=== PATIENT | male | born 1945 | race Caucasian/White ===

== ENCOUNTER → 2018-02-07 | Outpatient (CLI) | payer OTHER ==
[~2018-02-07] MED LIST: IOHEXOL 300 MG/ML 75 ML VIAL. IV ONE
[2018-02-07 10:50] LABS: CREATININE 0.8 mg/dL (0.7-1.3); GFR 95.3
--- NOTE | 2018-02-07 13:24 | RAD ---
CT study chest with contrast Clinical indications: Abnormal chest x-ray TECHNIQUE: After IV infusion of 75 cc of Omnipaque 300, helical CT scanning of the chest was performed. COMPARISON: December 14, 2016. FINDINGS: No enlarged thoracic lymphadenopathy is evident. No focal aneurysmal dilatation or dissection of the thoracic aorta is seen. The heart size is normal and no pericardial effusion is seen. Calcified atheromatous disease of the coronary arteries is seen. No pleural effusion or pneumothorax is seen. There is chronic elevation of the left hemidiaphragm. There is associated chronic atelectasis or scarring of the left lung base. There is a small granuloma within the anterior aspect of the lingula which is stable. There is some mild chronic scarring within the right lung base which is stable. No new lung infiltrate or lung mass is evident. The proximal bronchial tree is patent. No osteolytic process is seen. Right adrenal adenoma is seen and is unchanged from a CT study of the abdomen dated December 14, 2016. IMPRESSION: Chronic elevation of the left hemidiaphragm and associated chronic left lung base atelectasis or scarring. No new lung infiltrate or lung mass is evident. Calcified atheromatous disease of the coronary arteries. Normal heart size. There is increased radiodensity and haziness involving the mesentery and the retroperitoneal soft tissues around the pancreas. This may be related to patient's large body habitus and associated CT technique but pancreatitis is certainly a possibility if there is abdominal pain and in this setting, correlation with pancreatic enzymes is recommended. Electronically signed by: South Bell MD (02/07/2018 1:21 PM) [facility]
== END | disposition home or self-care (01) ==
LOC: CT 09:31
PROVIDERS: ATTEND Nurse Practitioner Family
DX: R93.8 Abnormal findings on diagnostic imaging of other specified body structures (principal); I25.10 Atherosclerotic heart disease of native coronary artery without angina pectoris
CPT/HCPCS: 36415; 71260; 82565; 84520; Q9967

== ENCOUNTER → 2018-07-28 | Outpatient (CLI) | payer OTHER ==
--- NOTE | 2018-07-28 14:19 | RAD ---
Fluoroscopy less than one hour/sniff test HISTORY: Elevated left hemidiaphragm FINDINGS: Fluoroscopy was performed while patient attempted a sniff maneuver. However patient had difficulty inhaling through his nose. There is decreased excursion of the left hemidiaphragm although also diminished on the right. Fluoroscopy time: 0.8 minutes, 13 images IMPRESSION: 1. Patient had difficulty performing sniff maneuver, decreased excursion of the left hemidiaphragm although fairly symmetric in appearance comparing with the right. There is mild elevation of the left hemidiaphragm similar to 2013 chest radiograph Electronically signed by: Alex Trinidad MD (07/28/2018 2:16 PM) [facility]
== END | disposition home or self-care (01) ==
LOC: RAD 12:41
PROVIDERS: ATTEND Internal Medicine
DX: J98.6 Disorders of diaphragm (principal); I25.10 Atherosclerotic heart disease of native coronary artery without angina pectoris
CPT/HCPCS: 76000

== ENCOUNTER 2019-09-02 12:16 | Emergency (ER) | payer MEDICARE, OTHER ==
[~2019-09-02] VITALS: Ht 184.2 cm; Wt 155.4 kg
[2019-09-02] MEDS ORDERED: IPRATRPIUM/ALBUTEROL 0.5/2.5MG 3 ML NEBU. NEB ONE (12:30)
[2019-09-02] MEDS ORDERED: ASPIRIN 81 MG TAB.CHEW PO ONE (12:30)
--- NOTE | 2019-09-02 12:32 | PHYS DOC ---
Past History Past Medical History: Diabetes, DVT (calf in 2010), Hypertension Past Surgical History: Tonsillectomy Smoking: Quit Greater Than 1 Year Alcohol Use: None Drug Use: None Adult General Chief Complaint Chief Complaint: CHEST PAIN HPI HPI Patient is a 73-year-old male presents with chest heaviness and difficulty breathing that started 15-20 minutes prior to arrival. Worse with exertion. No radiation. No nausea or vomiting. No diaphoresis. Patient has been getting evaluated by his primary care physician for possibility of asthma versus COPD. Patient is a former smoker having stopped in the 1970s.[] Review of Systems Review of Systems Constitutional: Denies fever or chills [] Eyes: Denies change in visual acuity, redness, or eye pain [] HENT: Denies nasal congestion or sore throat [] Respiratory: Denies cough or shortness of breath [] Cardiovascular: No additional information not addressed in HPI [] GI: Denies abdominal pain, nausea, vomiting, bloody stools or diarrhea [] : Denies dysuria or hematuria [] Musculoskeletal: Denies back pain or joint pain [] Integument: Denies rash or skin lesions [] Neurologic: Denies headache, focal weakness or sensory changes [] Endocrine: Denies polyuria or polydipsia [] All other systems were reviewed and found to be within normal limits, except as documented in this note. Allergies Allergies Allergies Coded Allergies Type Severity Reaction Last Updated Verified rosiglitazone Allergy Unknown 09/02/19 Yes Uncoded Allergies Type Severity Reaction Last Updated Verified STATIN Allergy Unknown 12/14/16 Physical Exam Physical Exam Constitutional: Well developed, well nourished, no acute distress, non-toxic appearance. [] HENT: Normocephalic, atraumatic, bilateral external ears normal, oropharynx moist, no oral exudates, nose normal. [] Eyes: PERRLA, EOMI, conjunctiva normal, no discharge. [] Neck: Normal range of motion, no tenderness, supple, no stridor. [] Cardiovascular:Heart rate regular rhythm, no murmur [] Lungs & Thorax: Bilateral breath sounds clear to auscultation [] Abdomen: Bowel sounds normal, soft, no tenderness, no masses, no pulsatile masses. [] Skin: Warm, dry, no erythema, no rash. [] Back: No tenderness, no CVA tenderness. [] Extremities: No tenderness, no cyanosis, no clubbing, ROM intact, no edema. [] Neurologic: Alert and oriented X 3, normal motor function, normal sensory function, no focal deficits noted. [] Psychologic: Affect normal, judgement normal, mood normal. [] EKG EKG EKG shows a sinus rhythm at 98 bpm, normal axis, QTC of 4 and 26 ms, no ST elevations. When compared with EKG of 12/25/2013, no acute changes are present. Interpreted by me at 1228[] Radiology/Procedures Radiology/Procedures PROCEDURE: CHEST PA & LATERAL PA and lateral chest radiographs 09/02/2019 CLINICAL HISTORY: Chest pain and shortness of breath. PA and lateral digital radiographs of the chest were obtained. Comparison is made to a CT scan of the chest dated 02/07/2018. The cardiac silhouette is normal in size. The thoracic aorta is mildly tortuous. Elevation of the left hemidiaphragm is again seen. Subsegmental atelectasis is seen within the lingula of the left upper lobe, unchanged. No acute pulmonary infiltrate is noted. No pneumothorax or pleural effusion is seen. Degenerative changes are seen involving the thoracic spine. IMPRESSION: No acute abnormality is seen.[] Course & Med Decision Making Course & Med Decision Making Pertinent Labs and Imaging studies reviewed. (See chart for details) ED course: Patient arrived, was placed in bed, and tolerated exam well. Aspirin was ordered but not given because patient had taken 325 mg of aspirin prior to arrival. He was given a breathing treatment which did improve his tightness. There was no change in his breath sounds. After the return of the laboratory and imaging studies, these were discussed with patient and family who voiced understanding. All questions were answered. Consultation was made with his primary care physician for admission at [facility]. Due to the patient's troponin being elevated, his primary care physician deferred admission due to the possibility of needing higher level of care than available here. Consultation was made with hospitalist service, Dr. Walsh, at [facility] who graciously accepted. He is transferred in improved condition. Medical decision making: Patient with acute coronary syndrome. There is no evidence of an ST elevation VT. No evidence of congestive heart failure, pneumonia, pneumothorax. While patient's d-dimer is elevated, it is within the appropriate range based on his age. Therefore, do not believe he has a pulmonary embolism.[] Dragon Disclaimer Dragon Disclaimer This electronic medical record was generated, in whole or in part, using a voice recognition dictation system. Departure Departure: Impression: Primary Impression: Acute coronary syndrome with high troponin Disposition: 05 TRANSFER OTHER Condition: IMPROVED Referrals: EMIL HE MD (PCP) FRANK PADGETT DO Sep 02, 2019 12:32
--- NOTE | 2019-09-02 12:51 | EKG ---
[address] [address] Test Date: 2019-09-02 Test Time: 12:23:23 Pat Name: JENNIFER ALEJANDRO Department: Room: Gender: M Underwriting Sales Representative: : 1945 Requested By: FRANK PADGETT Order Number: [id number] Reading MD: Craig Hinojosa MD Measurements Intervals [place] Rate: 98 P: 56 MN: 190 QRS: 90 QRSD: 110 T: 44 QT: 332 QTc: 426 Interpretive Statements SINUS RHYTHM NON-SPECIFIC ST/T CHANGES Electronically Signed On 09-11-2019 9:58:52 CDT by Craig Hinojosa MD
[2019-09-02 12:54] LABS: BASO # 0.1 x10^3/uL (0.0-0.2); BASO % 1 % (0-3); EOS # 0.2 x10^3/uL (0.0-0.7); EOS % 2 % (0-3); HEMATOCRIT 42.5 % (39.0-53.0); HEMOGLOBIN 13.9 g/dL (13.0-17.5); LYMPH # 2.2 x10^3/uL (1.0-4.8); LYMPH % 24 % (24-48); MEAN CORPUSCULAR HEMOGLOBIN 31 pg (25-35); MEAN CORPUSCULAR HGB CONC 33 g/dL (31-37); MEAN CORPUSCULAR VOLUME 95 fL (79-100); MONO # 0.8 x10^3/uL (0.0-1.1); MONO % 9 % (0-9); NEUT # 5.7 x10^3uL (1.8-7.7); NEUT % 64 % (31-73); PLATELET COUNT 224 x10^3/uL (140-400); RED BLOOD COUNT 4.46 x10^6/uL (4.30-5.70); RED CELL DISTRIBUTION WIDTH 13.6 % (11.5-14.5)
--- NOTE | 2019-09-02 13:17 | RAD ---
PA and lateral chest radiographs 09/02/2019 CLINICAL HISTORY: Chest pain and shortness of breath. PA and lateral digital radiographs of the chest were obtained. Comparison is made to a CT scan of the chest dated 02/07/2018. The cardiac silhouette is normal in size. The thoracic aorta is mildly tortuous. Elevation of the left hemidiaphragm is again seen. Subsegmental atelectasis is seen within the lingula of the left upper lobe, unchanged. No acute pulmonary infiltrate is noted. No pneumothorax or pleural effusion is seen. Degenerative changes are seen involving the thoracic spine. IMPRESSION: No acute abnormality is seen. Electronically signed by: Antonio Dawn MD (09/02/2019 1:14 PM) [facility]
[2019-09-02 14:00] LABS: MAGNESIUM 1.6 mg/dL (1.8-2.4)
[2019-09-02] MEDS ORDERED: NITROGLYCERIN SUBLINGUAL 0.4 MG BOTTLE OF 25. SL PRN (14:15)
[2019-09-02 14:23] LABS: ALBUMIN 3.4 g/dL (3.4-5.0); ALBUMIN/GLOBULIN RATIO 0.9 (1.0-1.7); CREATININE 1.1 mg/dL (0.7-1.3); GFR 65.8; POTASSIUM 3.7 mmol/L (3.5-5.1); TOTAL BILIRUBIN 0.3 mg/dL (0.2-1.0)
[2019-09-02 16:15] VITALS: BP 150/77
== END 2019-09-02 16:15 | disposition short-term general hospital (02) ==
LOC: ER 12:16
DX: I24.9 Acute ischemic heart disease, unspecified (principal); E11.9 Type 2 diabetes mellitus without complications; I10 Essential (primary) hypertension; R77.8 Other specified abnormalities of plasma proteins; Z86.718 Personal history of other venous thrombosis and embolism; Z87.891 Personal history of nicotine dependence; Z88.8 Allergy status to other drugs, medicaments and biological substances
CPT/HCPCS: 36415; 71046; 80053; 83690; 83735; 83880; 84484; 85025; 85379; 85610; 85730; 93005; 94640; 99285; J7620

== ENCOUNTER → 2020-04-16 | Outpatient (CLI) | payer MEDICARE ==
[2020-04-16 09:55] LABS: BASO # 0.1 x10^3/uL (0.0-0.2); BASO % 1 % (0-3); EOS # 0.2 x10^3/uL (0.0-0.7); EOS % 3 % (0-3); HEMATOCRIT 40.8 % (39.0-53.0); HEMOGLOBIN 13.3 g/dL (13.0-17.5); LYMPH # 2.3 x10^3/uL (1.0-4.8); LYMPH % 34 % (24-48); MEAN CORPUSCULAR HEMOGLOBIN 31 pg (25-35); MEAN CORPUSCULAR HGB CONC 33 g/dL (31-37); MEAN CORPUSCULAR VOLUME 95 fL (79-100); MONO # 0.8 x10^3/uL (0.0-1.1); MONO % 12 % (0-9); NEUT # 3.4 x10^3uL (1.8-7.7); NEUT % 51 % (31-73); PLATELET COUNT 216 x10^3/uL (140-400); RED CELL DISTRIBUTION WIDTH 13.8 % (11.5-14.5); WHITE BLOOD COUNT 6.7 x10^3/uL (4.0-11.0)
[2020-04-16 10:11] LABS: ALBUMIN 3.4 g/dL (3.4-5.0); ALBUMIN/GLOBULIN RATIO 0.9 (1.0-1.7); CALCIUM 9.1 mg/dL (8.5-10.1); GFR 73.2; POTASSIUM 4.2 mmol/L (3.5-5.1); TOTAL BILIRUBIN 0.4 mg/dL (0.2-1.0); TOTAL PROTEIN 7.4 g/dL (6.4-8.2)
== END ==
LOC: LAB 08:24
PROVIDERS: ATTEND Internal Medicine Cardiovascular Disease
DX: I25.10 Atherosclerotic heart disease of native coronary artery without angina pectoris (principal)
CPT/HCPCS: 36415; 80053; 80061; 85025

== ENCOUNTER → 2020-05-06 | Outpatient (CLI) | payer MEDICARE ==
--- NOTE | 2020-05-06 13:54 | CARD ---
MR#: [id number] Date of Study: 05/06/2020 Ordering Physician: JULIA HENDERSON, Referring Physician: JULIA HENDERSON, Tech: Michelle Ozuna [facility] APPROVED REPORT EXAM: Two-dimensional and M-mode echocardiogram with Doppler and color Doppler. Other Information Quality : Technically Limited Technically limited study due to morbid obesity. Recommend AMBER to better visualize heart struct ure. INDICATION Cardiac Disease: CAD 2D DIMENSIONS Left Atrium(2D)3.3 (1.6-4.0cm)IVSd1.0 (0.7-1.1cm) Aortic Root(2D)2.9 (2.0-3.7cm)LVDd3.4 (3.9-5.9cm) LVOT Diameter1.9 (1.8-2.4cm)PWd0.9 (0.7-1.1cm) LVDs2.7 (2.5-4.0cm)FS (%) 21.7 % SV21.9 ml Aortic Valve AoV Peak Abdoulaye.153.4cm/sAoV VTI31.7cm AO Peak GR.9.4mmHgLVOT Peak Abdoulaye.127.1cm/s LVOT VTI 27.88cmAO Mean GR.5mmHg SANG (VMAX)2.37ds8ZCU (VTI)2.46cm2 Mitral Valve MV E Zhzevxuh87.0cm/sMV DECEL ABYP140ru MV A Ylrncaud065.0cm/sE/A Ratio0.8 Pulmonary Vein S1 Bgralbjf44.5cm/sD2 Gdbixrmr56.2cm/s LEFT VENTRICLE Technically difficult study. The left ventricle is normal size. There is borderline to mild concentr ic left ventricular hypertrophy. Left ventricle systolic function appears at the lower limit of paco l. The Ejection Fraction is estimated at 50%. There is normal LV segmental wall motion. Transmitral Doppler flow pattern is Grade I-abnormal relaxation pattern. RIGHT VENTRICLE The right ventricle is normal size. The right ventricular systolic function is normal. ATRIA The left atrium size is normal. The right atrium size is normal. The interatrial septum is intact wit h no evidence for an atrial septal defect or patent foramen ovale as noted on 2-D or Doppler imaging. AORTIC VALVE The aortic valve is not well visualized but appears to be functioning normally by Doppler interrogati on. Doppler and Color Flow revealed no significant aortic regurgitation. There is no significant aort ic valvular stenosis. MITRAL VALVE The mitral valve is calcified but opens well. There is no evidence of mitral valve prolapse. There is no mitral valve stenosis. Doppler and Color-flow revealed trace mitral regurgitation. TRICUSPID VALVE The tricuspid valve is normal in structure and function. Doppler and Color Flow revealed trace tricus pid regurgitation. There is no tricuspid valve stenosis. PULMONIC VALVE The pulmonic valve is not visualized. GREAT VESSELS The aortic root is normal in size. The ascending aorta is not well seen. The IVC is normal in size an d collapses >50% with inspiration. PERICARDIAL EFFUSION There is no evidence of significant pericardial effusion. Critical Notification Critical Value: No <Conclusion> Technically difficult study. The left ventricle is normal size. Left ventricle systolic function appears at the lower limit of normal. The Ejection Fraction is estimated at 50%. There is borderline to mild concentric left ventricular hypertrophy. Doppler and Color Flow revealed no significant aortic regurgitation. There is no significant aortic valvular stenosis. Doppler and Color-flow revealed trace mitral regurgitation. Doppler and Color Flow revealed trace tricuspid regurgitation. Signed by : Ray Flores MD Electronically Approved : 05/06/2020 13:53:49
== END | disposition home or self-care (01) ==
LOC: ECHO 12:34
PROVIDERS: ATTEND Internal Medicine Cardiovascular Disease
DX: I34.8 Other nonrheumatic mitral valve disorders (principal); I25.10 Atherosclerotic heart disease of native coronary artery without angina pectoris; I51.7 Cardiomegaly
CPT/HCPCS: 93306

== ENCOUNTER → 2021-09-29 | Outpatient (CLI) | payer MEDICARE ==
--- NOTE | 2021-09-29 13:54 | CARD ---
MR#: [id number] Date of Study: 09/29/2021 Ordering Physician: JULIA HENDERSON, Referring Physician: JULIA HENDERSON, Tech: Jasmina Villanueva, [facility] APPROV[facility] REPORT EXAM: Two-dimensional and M-mode echocardiogram with Doppler and color Doppler. Other Information Quality : FairHR: 63bpm Technically limited study due to Elevated left Marvin Diaphram, Obesity INDICATION Cardiac Disease: CAD RISK FACTORS Hyperlipidemia Diabetes 2D DIMENSIONS Left Atrium(2D)3.2 (1.6-4.0cm)IVSd1.2 (0.7-1.1cm) Aortic Root(2D)3.4 (2.0-3.7cm)LVDd4.5 (3.9-5.9cm) LVOT Diameter2.1 (1.8-2.4cm)PWd1.2 (0.7-1.1cm) LVDs2.6 (2.5-4.0cm)FS (%) 43.4 % SV70.6 mlLVEF(%)71.7 (>50%) Aortic Valve AoV Peak Abdoulaye.137.2cm/sAoV VTI31.1cm AO Peak GR.7.5mmHgLVOT Peak Abdoulaye.143.1cm/s LVOT VTI 30.50cmAO Mean GR.4mmHg SANG (VMAX)3.13gq6AGA (VTI)3.39cm2 Mitral Valve MV E Cffafyji76.4cm/sMV E Peak Gr.3mmHg MV DECEL [id number] A Yhsawykc72.2cm/s MV E Mean Gr.2mmHgE/A Ratio0.9 LEFT VENTRICLE The left ventricle is normal size. There is mild concentric left ventricular hypertrophy. The left ve ntricular systolic function is normal. The Ejection Fraction is 55-60%. There is normal LV segmental wall motion. Transmitral Doppler flow pattern is Grade I-abnormal relaxation pattern. RIGHT VENTRICLE The right ventricle is normal size. There is normal right ventricular wall thickness. The right ventr icular systolic function is normal. ATRIA The left atrium size is normal. The right atrium size is normal. The interatrial septum is intact wit h no evidence for an atrial septal defect or patent foramen ovale as noted on 2-D or Doppler imaging. AORTIC VALVE The aortic valve is not well visualized. Doppler and Color Flow revealed no significant aortic regurg itation. There is no significant aortic valvular stenosis. Calculated aortic valve area is 3.5 cm2 wi th maximum pressure gradient of 8 mmHg and mean pressure gradient of 4 mmHg. MITRAL VALVE The mitral valve is normal in structure and function. There is no evidence of mitral valve prolapse. There is no mitral valve stenosis. Doppler and Color Flow revealed no mitral valve regurgitation note d. TRICUSPID VALVE The tricuspid valve is not well visualized. Doppler and Color Flow revealed no tricuspid valve regurg itation noted. There is no tricuspid valve stenosis. PULMONIC VALVE The pulmonic valve is not visualized. GREAT VESSELS The aortic root is normal in size. The IVC was not visualized. PERICARDIAL EFFUSION There is no evidence of significant pericardial effusion. Critical Notification Critical Value: No <Conclusion> Technically difficult study. The left ventricular systolic function is normal. The Ejection Fraction is 55-60%. There is normal LV segmental wall motion. Transmitral Doppler flow pattern is Grade I-abnormal relaxation pattern. There is no evidence of significant pericardial effusion. Signed by : Ulices Leavitt, Electronically Approved : 09/29/2021 13:53:55
== END ==
LOC: ECHO 09:30
PROVIDERS: ATTEND Internal Medicine Cardiovascular Disease
DX: I51.7 Cardiomegaly (principal); I25.10 Atherosclerotic heart disease of native coronary artery without angina pectoris
CPT/HCPCS: 93306